=== PATIENT | female | born 1945 | race African-American/Black ===

== ENCOUNTER → 2016-10-14 13:39 | Outpatient (CLI) | payer MEDICARE, MEDICAID ==
[2013-08-28 10:28] VITALS: BMI 29.8
[~2016-10-14 13:39] MED LIST: CELEXA40 MG PO; PRILOSEC20 MG PO; WELLBUTRIN75 MG PO
== END | disposition home or self-care (01) ==
LOC: D.MRI 13:39
DX: Z12.31 Encounter for screening mammogram for malignant neoplasm of breast (principal); R42 Dizziness and giddiness

== ENCOUNTER → 2016-10-28 12:17 | Outpatient (CLI) | payer MEDICARE, MEDICAID ==
[2013-08-28 10:28] VITALS: BMI 29.8
[2016-10-28 13:27] LABS: HEMATOCRIT 40.1 % (36.0-48.0); HEMOGLOBIN 12.9 g/dL (12-16); WBC 4.1 10x3/uL (4.8-10.8)
[2016-10-28 13:36] LABS: INR 1.03 (0.85-1.17); PROTIME 13.4 SECONDS (11.6-15.0)
[2016-10-28 13:37] LABS: CREATININE - SERUM 1.1 mg/dL (0.6-1.3); POTASSIUM - SERUM 3.6 mmol/L (3.5-5.1)
[2016-10-28 14:14] LABS: APPEARANCE SLT CLOUDY (CLEAR); BACTERIA MODERATE /hpf (NONE SEEN); BILIRUBIN NEGATIVE (NEGATIVE); COLOR YELLOW (YELLOW); EPITHELIAL CELLS 0-5 /hpf (0-5); GLUCOSE NEGATIVE (NEGATIVE); KETONE NEGATIVE (NEGATIVE); LEUKOCYTE ESTERASE 2+ (NEGATIVE); NITRITE NEGATIVE (NEGATIVE); PROTEIN NEGATIVE (NEGATIVE); RED CELLS - URINE 0-5 /hpf (0-5); SPECIFIC GRAVITY 1.015 (1.005-1.020); UROBILINOGEN NORMAL (NORMAL)
== END | disposition home or self-care (01) ==
LOC: D.RT 12:17
PROVIDERS: Specialist
DX: Z01.812 Encounter for preprocedural laboratory examination (principal); I10 Essential (primary) hypertension; T14.8 Other injury of unspecified body region; G60.9 Hereditary and idiopathic neuropathy, unspecified

== ENCOUNTER 2016-11-04 11:46 | Outpatient (CLI) | payer MEDICARE, MEDICAID ==
[2013-08-28 10:28] VITALS: BMI 29.8
== END 2016-11-04 16:36 ==
LOC: D.MAMMO 11:46
DX: Z12.31 Encounter for screening mammogram for malignant neoplasm of breast (principal)

== ENCOUNTER → 2016-11-16 15:28 | Outpatient (CLI) | payer MEDICARE, MEDICAID ==
[2013-08-28 10:28] VITALS: BMI 29.8
== END | disposition home or self-care (01) ==
LOC: D.LAB 15:28
DX: Z01.812 Encounter for preprocedural laboratory examination (principal)

== ENCOUNTER → 2018-03-03 13:52 | Outpatient (CLI) | payer MEDICARE, MEDICAID ==
[2013-08-28 10:28] VITALS: BMI 29.8
== END | disposition home or self-care (01) ==
LOC: D.CT 13:52
DX: I73.9 Peripheral vascular disease, unspecified (principal)

== ENCOUNTER → 2018-05-18 14:14 | Outpatient (CLI) | payer MEDICARE, MEDICAID ==
[2013-08-28 10:28] VITALS: BMI 29.8
== END | disposition home or self-care (01) ==
LOC: D.MRI 14:14
DX: M54.5 Low back pain (principal)

== ENCOUNTER → 2018-06-29 18:02 | Outpatient (CLI) | payer MEDICARE, MEDICAID ==
[2013-08-28 10:28] VITALS: BMI 29.8
== END | disposition home or self-care (01) ==
LOC: D.MAMMO 06-01 16:15
DX: Z12.31 Encounter for screening mammogram for malignant neoplasm of breast (principal)

== ENCOUNTER → 2020-01-24 08:52 | Outpatient (CLI) | payer MEDICARE, MEDICAID ==
[2013-08-28 10:28] VITALS: BMI 29.8
== END | disposition home or self-care (01) ==
LOC: D.HCCARDIO 08:52 → D.HCCECHO 10:00
PROVIDERS: ATTEND Internal Medicine Cardiovascular Disease
DX: I20.9 Angina pectoris, unspecified (principal)